=== PATIENT | male | born 1945 | race Caucasian/White ===

== ENCOUNTER 2017-12-05 19:00 | Inpatient (IN) | payer OTHER ==
[~2017-12-05] VITALS: Ht 162.6 cm; Wt 139.0 kg
== END 2017-12-16 15:54 | disposition home or self-care (01) | DRG 974 ==
LOC: ER 19:00 → MEDJ 12-06 10:38 → MEDI 12-06 10:38 → ICU 12-09 03:15 → SURH 12-10 14:22 → MEDI 12-10 14:22 → SURH 12-10 14:22
PROC: 3E0F7GC Introduction of Other Therapeutic Substance into Respiratory Tract, Via Natural or Artificial Opening (ICD-10-PCS; 2017-12-06)
PROC: 5A1945Z Respiratory Ventilation, 24-96 Consecutive Hours (ICD-10-PCS; principal; 2017-12-07)
PROC: 0BH17EZ Insertion of Endotracheal Airway into Trachea, Via Natural or Artificial Opening (ICD-10-PCS; 2017-12-07)
PROC: 4A033R1 Measurement of Arterial Saturation, Peripheral, Percutaneous Approach (ICD-10-PCS; 2017-12-07)
PROC: 4A12X4Z Monitoring of Cardiac Electrical Activity, External Approach (ICD-10-PCS; 2017-12-07)
PROC: 8E0ZXY6 Isolation (ICD-10-PCS; 2017-12-07)
PROC: 4A12X4Z Monitoring of Cardiac Electrical Activity, External Approach (ICD-10-PCS; 2017-12-10)
DX: B20 Human immunodeficiency virus [HIV] disease (principal); J96.01 Acute respiratory failure with hypoxia; B37.0 Candidal stomatitis; J44.1 Chronic obstructive pulmonary disease with (acute) exacerbation; B96.0 Mycoplasma pneumoniae [M. pneumoniae] as the cause of diseases classified elsewhere

== ENCOUNTER 2019-09-08 09:49 | Emergency (ER) | payer OTHER ==
[~2019-09-08] VITALS: Ht 162.6 cm; Wt 59.0 kg
[2019-09-08] MEDS ORDERED: TRELEGY ELLIPT1 EACH IH (10:06)
[2019-09-08] MEDS ORDERED: CRESTOR5 MG PO (10:07)
[2019-09-08] MEDS ORDERED: TIVICAY50 MG PO (10:07)
[2019-09-08] MEDS ORDERED: DESCOVY 200-251 EACH PO (10:07)
[2019-09-08] MEDS ORDERED: NORFLEX100MG PO (12:12)
[2019-09-08] MEDS ORDERED: ADVIL LIQUI-GE200 MG PO (12:12)
== END 2019-09-08 13:13 | disposition home or self-care (01) ==
LOC: ER 09:49
DX: M54.5 Low back pain (principal); Z20.828 Contact with and (suspected) exposure to other viral communicable diseases

== ENCOUNTER 2020-06-26 07:06 | Outpatient (CLI) | payer OTHER ==
[~2020-06-26 07:06] MED LIST: ADVIL LIQUI-GE200 MG PO; CRESTOR5 MG PO; DESCOVY 200-251 EACH PO; NORFLEX100MG PO; TIVICAY50 MG PO; TRELEGY ELLIPT1 EACH IH
== END 2020-06-26 07:18 | disposition home or self-care (01) ==
LOC: SONOGRAMA 07:06 → MAMO-SONO 07:30
DX: E80.7 Disorder of bilirubin metabolism, unspecified (principal)

== ENCOUNTER 2021-01-07 12:37 | Outpatient (CLI) | payer OTHER | END 2021-01-07 12:41 | disposition home or self-care (01) | LOC: RAD 12:37 | PROVIDERS: ATTEND Internal Medicine Pulmonary Disease | DX: I10 Essential (primary) hypertension (principal); J44.9 Chronic obstructive pulmonary disease, unspecified ==

== ENCOUNTER 2023-01-05 09:25 | Emergency (ER) | payer OTHER ==
[~2023-01-05] VITALS: Ht 162.6 cm; Wt 57.2 kg
[2023-01-05 12:38] LABS: ABG PH 7.441 (7.35-7.45); ABG pCO2 30.6 mmHg (35-45)
[2023-01-05 12:39] LABS: BASE EXCESS -2.5 mmol/l; BICARBONATE 20.4 mmol/l (23-25); SaO2 88.3 %; Tco2 21.3 mmol/l; allen test SATISFACTORY; o2 21 %; puncture site RADIAL LEFT
[2023-01-05 12:51] LABS: HEMATOCRIT 43.5 % (39.0-48.0); HEMOGLOBIN 15.5 g/dL (13-16.00); MEAN CORPUSCULAR HEMOGLOBIN 33.9 pg (27.00-32.0); MEAN CORPUSCULAR HGB CONC 35.7 g/dl (32.0-36.0); PLATELET COUNT 202 K/uL (150-450); RED BLOOD COUNT 4.58 M/uL (4.00-6.00); RED CELL DISTRIBUTION WIDTH 13.2 % (11.5-14.5)
[2023-01-05 12:59] LABS: CALCIUM 9.3 mg/dL (8.5-10.1); CREATININE SERUM 0.98 mg/dL (0.70-1.30); GFR 74.16; POTASSIUM 3.55 mEq/L (3.5-5.1)
== END 2023-01-05 15:56 | disposition home or self-care (01) ==
LOC: ER 09:26
PROVIDERS: Emergency Medicine
DX: J44.1 Chronic obstructive pulmonary disease with (acute) exacerbation (principal); Z87.891 Personal history of nicotine dependence; Z20.822 Contact with and (suspected) exposure to COVID-19